=== PATIENT | female | born 1990 | race Caucasian/White ===

== ENCOUNTER 2018-12-21 15:45 | Outpatient (CLI) | payer SELFPAY ==
[~2018-12-21] VITALS: Ht 167.6 cm; Wt 71.4 kg
[~2018-12-21 15:45] MED LIST: PREN-93 PO
[2018-12-21 15:57] VITALS: Ht 167.6 cm; Wt 71.4 kg
[2018-12-21 15:58] VITALS: BP 117/67; PULSE 91; RESP 18
== END 2018-12-21 18:20 | disposition home or self-care (01) ==
LOC: OBT 15:45 → L-D 15:47 → OBT 18:20
PROVIDERS: ATTEND Obstetrics & Gynecology
DX: O26.893 Other specified pregnancy related conditions, third trimester (principal); N89.8 Other specified noninflammatory disorders of vagina; Z3A.37 37 weeks gestation of pregnancy
CPT/HCPCS: 76818; 84112; G0463

== ENCOUNTER 2018-12-26 17:49 | Outpatient (CLI) | payer SELFPAY ==
[~2018-12-26] VITALS: Ht 167.6 cm; Wt 72.7 kg
[2018-12-26 19:46] VITALS: BP 109/66; PULSE 82; RESP 18
== END 2018-12-26 19:43 | disposition home or self-care (01) ==
LOC: OBT 17:49 → L-D 17:50 → OBT 19:43
PROVIDERS: ATTEND Obstetrics & Gynecology
DX: O47.1 False labor at or after 37 completed weeks of gestation (principal); Z3A.37 37 weeks gestation of pregnancy
CPT/HCPCS: 76818; G0463